=== PATIENT | male | born 1955 | race Caucasian/White ===

== ENCOUNTER → 2017-10-15 | Outpatient (CLI) | payer BC ==
[~2017-10-15] MED LIST: PROHANCE 279.3MG/ML 15ML VIAL (A9576) As Ordered; PROHANCE 279.3MG/ML 5ML VIAL (A9576) As Ordered
== END ==
LOC: M RAD 07:31
DX: G57.62 Lesion of plantar nerve, left lower limb (principal)

== ENCOUNTER → 2021-12-19 | Outpatient (CLI) | payer MEDICARE ==
[~2021-12-19] MED LIST changes: +FINA5TAB2 PO; +LMEF1TAB PO; +OMEG10002 PO; -PROHANCE 279.3MG/ML 15ML VIAL (A9576) As Ordered; -PROHANCE 279.3MG/ML 5ML VIAL (A9576) As Ordered; +SIMV10TA21 PO; +VALS1TAB67 PO
== END ==
LOC: M PLARAD 13:30
PROVIDERS: ATTEND Internal Medicine Medical Oncology
DX: C85.19 Unspecified B-cell lymphoma, extranodal and solid organ sites (principal)
CPT/HCPCS: 78815; A9552

== ENCOUNTER → 2022-01-02 | Outpatient (CLI) | payer MEDICARE ==
[~2022-01-02] MED LIST changes: +LIDOCAINE 1% MDV 20ML VIAL As Ordered ONE
[2022-01-02 13:09] LABS: BASO # 0.1 10^3/uL (0.0-0.2); BASO % 0.8 % (0.0-1.0); EOS # 0.1 10^3/uL (0.0-0.5); EOS % 1.4 % (0.0-3.0); HEMATOCRIT 43.2 % (42.0-52.0); LYMPH # 2.3 10^3/uL (1.5-5.0); MEAN CORPUSCULAR HEMOGLOBIN 31.3 pg (27.0-33.0); MEAN CORPUSCULAR HGB CONC 34.7 g/dl (32.0-36.5); MEAN CORPUSCULAR VOLUME 90.2 fl (80.0-96.0); MONO # 0.7 10^3/uL (0.0-0.8); MONO % 9.4 % (2.0-8.0); NEUTROPHILS # 4.1 10^3/uL (1.5-8.5); NEUTROPHILS % 56.1 % (36.0-66.0); PLATELET COUNT, AUTOMATED 189 10^3/uL (150-450); RED BLOOD COUNT 4.79 10^6/uL (4.30-6.10); WHITE BLOOD COUNT 7.3 10^3/uL (4.0-10.0)
[2022-01-02 13:50] VITALS: BP 149/76
== END ==
LOC: M IRPRO 12:25
PROVIDERS: ATTEND Internal Medicine Medical Oncology
DX: C83.39 Diffuse large B-cell lymphoma, extranodal and solid organ sites (principal)

== ENCOUNTER → 2022-01-24 | Outpatient (CLI) | payer MEDICARE ==
[~2022-01-24] MED LIST changes: +AMLO1TAB24 PO; -LIDOCAINE 1% MDV 20ML VIAL As Ordered ONE
== END ==
LOC: M ONCR 08:53
PROVIDERS: ATTEND General Practice
DX: C82.69 Cutaneous follicle center lymphoma, extranodal and solid organ sites (principal)

== ENCOUNTER → 2022-02-21 | Outpatient (RCR) | payer MEDICARE | LOC: M ONCR 02-03 08:27 | PROVIDERS: ATTEND General Practice | DX: C82.69 Cutaneous follicle center lymphoma, extranodal and solid organ sites (principal) ==

== ENCOUNTER 2022-03-02 09:00 | Outpatient (RCR) | payer MEDICARE | END 2022-03-23 | LOC: M ONCR 09:00 | PROVIDERS: ATTEND General Practice | DX: C82.69 Cutaneous follicle center lymphoma, extranodal and solid organ sites (principal) ==

== ENCOUNTER → 2022-03-30 | Outpatient (REF) | payer MEDICARE | LOC: M LAB REF 08:11 | PROVIDERS: ATTEND Surgery | DX: D17.1 Benign lipomatous neoplasm of skin and subcutaneous tissue of trunk (principal); E65 Localized adiposity ==

== ENCOUNTER → 2022-04-13 | Outpatient (CLI) | payer MEDICARE | LOC: M ONCR 08:48 | PROVIDERS: ATTEND General Practice | DX: C82.69 Cutaneous follicle center lymphoma, extranodal and solid organ sites (principal) ==

== ENCOUNTER → 2022-06-05 | Outpatient (CLI) | payer MEDICARE ==
[~2022-06-05] MED LIST changes: +BUSP5TA PO
== END ==
LOC: M LABSMTC 11:17
PROVIDERS: ATTEND Anesthesiology
DX: Z01.818 Encounter for other preprocedural examination (principal); Z11.52 Encounter for screening for COVID-19

== ENCOUNTER 2022-06-08 10:51 | Day surgery (SDC) | payer MEDICARE ==
[~2022-06-08] VITALS: Ht 180.3 cm; Wt 74.4 kg
[~2022-06-08 10:51] MED LIST changes: +NS 1,000 ML IV ONE
[2022-06-08] MEDS ORDERED: LIDOCAINE 2% 100MG/5ML SDV (FOR ANES.) As Ordered ONE (10:58)
[2022-06-08] MEDS ORDERED: propofoL 200 MG/20 ML VIAL As Ordered ONE (10:58)
[2022-06-08 12:52] VITALS: BP 124/71
== END 2022-06-08 13:05 | disposition home or self-care (01) ==
LOC: M OPP 10:51
PROVIDERS: ATTEND Surgery
DX: R19.5 Other fecal abnormalities (principal); Z79.02 Long term (current) use of antithrombotics/antiplatelets; Z79.899 Other long term (current) drug therapy; E78.5 Hyperlipidemia, unspecified; F41.9 Anxiety disorder, unspecified; Z85.828 Personal history of other malignant neoplasm of skin; Z92.3 Personal history of irradiation

== ENCOUNTER → 2022-09-15 | Outpatient (CLI) | payer MEDICARE ==
[~2022-09-15] MED LIST changes: -NS 1,000 ML IV ONE
== END ==
LOC: M ONCR 08:50
PROVIDERS: ATTEND General Practice
DX: Z08 Encounter for follow-up examination after completed treatment for malignant neoplasm (principal); Z85.828 Personal history of other malignant neoplasm of skin; Z79.899 Other long term (current) drug therapy; Z92.3 Personal history of irradiation

== ENCOUNTER → 2022-09-19 | Outpatient (CLI) | payer MEDICARE | LOC: M SOG 08:25 | PROVIDERS: ATTEND Orthopaedic Surgery | DX: M25.511 Pain in right shoulder (principal) ==

== ENCOUNTER → 2022-09-21 | Outpatient (REF) | payer MEDICARE ==
[2022-09-21 21:15] LABS: ATYPICAL LYMPH 5 % (0-5); BASOPHILS 2 % (0-1); EOSINOPHILS 2 % (0-3); LYMPHOCYTES 34 % (16-44); MONOCYTES 5 % (0-5); NEUTROPHILS 52 % (28-66)
[2022-09-21 21:16] LABS: PLATELET CLUMPS SMALL AMT; PLATELET ESTIMATE NORMAL (NORMAL)
== END ==
LOC: M LAB REF 17:15
PROVIDERS: ATTEND Internal Medicine
DX: D72.9 Disorder of white blood cells, unspecified (principal)

== ENCOUNTER → 2022-10-25 | Outpatient (CLI) | payer MEDICARE | LOC: M RAD 07:33 | PROVIDERS: ATTEND Surgery | DX: D17.1 Benign lipomatous neoplasm of skin and subcutaneous tissue of trunk (principal) ==

== ENCOUNTER 2023-08-31 20:11 | Emergency (ER) | payer MEDICARE ==
[~2023-08-31] VITALS: Ht 180.3 cm; Wt 78.5 kg
[~2023-08-31 20:11] MED LIST changes: +BUSP15TA47; +CLON0.5T2; +ELIQ5TAB PO; +METO25TA4 PO; +VALS320T2; +ZOLP5TAB
[2023-08-31 20:46] LABS: BASO # 0.1 10^3/uL (0.0-0.2); EOS # 0.1 10^3/uL (0.0-0.5); EOS % 1.7 % (0.0-3.0); HEMATOCRIT 43.4 % (42.0-52.0); LYMPH # 3.1 10^3/uL (1.5-5.0); LYMPH % 38.5 % (24.0-44.0); MEAN CORPUSCULAR HEMOGLOBIN 30.4 pg (27.0-33.0); MEAN CORPUSCULAR HGB CONC 34.6 g/dl (32.0-36.5); MONO # 0.9 10^3/uL (0.0-0.8); MONO % 10.6 % (2.0-8.0); NEUTROPHILS # 3.9 10^3/uL (1.5-8.5); NEUTROPHILS % 48.1 % (36.0-66.0); PLATELET COUNT, AUTOMATED 188 10^3/uL (150-450); RED BLOOD COUNT 4.93 10^6/uL (4.30-6.10); WHITE BLOOD COUNT 8.1 10^3/uL (4.0-10.0)
[2023-08-31 21:09] LABS: CK-MB VALUE MASS 1.4 NG/ML (<3.6)
[2023-08-31 21:10] LABS: BLOOD UREA NITROGEN 19 MG/DL (9-23); CALCIUM LEVEL 8.8 MG/DL (8.3-10.6); CARBON DIOXIDE LEVEL 25 MMOL/L (20-31); CHLORIDE LEVEL 107 MMOL/L (98-107); CREATININE FOR GFR 1.02 MG/DL (0.70-1.30); GLOMERULAR FILTRATION RATE > 60.0 (>49); GLUCOSE, FASTING 103 MG/DL (74-106); POTASSIUM SERUM 3.8 MMOL/L (3.5-5.1); SODIUM LEVEL 139 MMOL/L (136-145)
[2023-08-31 21:16] LABS: CPK CREATINE PHOSPHOKINASE 241 U/L (46-171); MB/CK RELATIVE INDEX 0.58 (< OR =4)
[2023-08-31 21:28] LABS: INR 0.99; PROTHROMBIN TIME 12.8 SECONDS (12.5-14.5)
[2023-08-31 21:29] LABS: PARTIAL THROMBOPLASTIN TIME 31.5 SECONDS (24.8-34.2)
[2023-08-31 22:05] LABS: CK-MB VALUE MASS 1.3 NG/ML (<3.6)
[2023-08-31 22:12] LABS: MB/CK RELATIVE INDEX 0.56 (< OR =4)
[2023-08-31] MEDS ORDERED: NS 1,000 ML IV ONE (23:05)
[2023-08-31] MEDS ORDERED: ISOVUE-370 76% 100ML VIAL As Ordered ONE (23:08)
[2023-09-01 01:52] VITALS: BP 157/80; TEMP 97.8; O2SAT 98
== END 2023-09-01 01:48 | disposition home or self-care (01) ==
LOC: M ED 20:11
DX: R07.9 Chest pain, unspecified (principal); I45.10 Unspecified right bundle-branch block; I10 Essential (primary) hypertension; E78.5 Hyperlipidemia, unspecified; F32.A Depression, unspecified; Z86.79 Personal history of other diseases of the circulatory system; Z79.01 Long term (current) use of anticoagulants; Z79.899 Other long term (current) drug therapy
CPT/HCPCS: 71045; 71275; 80048; 82550; 82553; 84484; 85025; 85610; 85730; 93005; 93041; 94760; 96360; 96361; 99284; Q9967

== ENCOUNTER → 2023-12-05 | Outpatient (CLI) | payer MEDICARE ==
[~2023-12-05] MED LIST changes: +ISOVUE-370 76% 100ML VIAL As Ordered ONE
== END ==
LOC: M RAD 10:03
PROVIDERS: ATTEND Internal Medicine
DX: R91.1 Solitary pulmonary nodule (principal)
CPT/HCPCS: 71260; Q9967

== ENCOUNTER → 2024-02-11 | Outpatient (CLI) | payer MEDICARE ==
[~2024-02-11] MED LIST changes: -ISOVUE-370 76% 100ML VIAL As Ordered ONE
== END ==
LOC: M RAD 09:11
PROVIDERS: ATTEND Internal Medicine
DX: I15.0 Renovascular hypertension (principal)